=== PATIENT | female | born 1975 | race Caucasian/White ===

== ENCOUNTER 2024-03-17 17:44 | Emergency (ER) | payer BC ==
[~2024-03-17] VITALS: Ht 162.6 cm; Wt 113.4 kg
[~2024-03-17 17:44] MED LIST: LANS30CA53; URSO300C24
[2024-03-17 17:54] VITALS: BP_SYST 149; PULSE 81; RESP 18; TEMP 98.1; O2SAT 99
[2024-03-17] MEDS ORDERED: IBUP-1969 PO (18:54)
[2024-03-17] MEDS ORDERED: DICL20GE TP (18:54)
[2024-03-17 19:22] VITALS: BP_SYST 149; PULSE 81; RESP 18; TEMP 98.1; O2SAT 99
[2024-03-17] MEDS: KETOROLAC TROMETHAMINE 60 MG/2 ML VIAL IM ONE (19:22)
== END 2024-03-17 19:23 | disposition home or self-care (01) ==
LOC: SED 17:44
DX: S80.02XA Contusion of left knee, initial encounter (principal); Z88.6 Allergy status to analgesic agent; W18.39XA Other fall on same level, initial encounter; Y93.89 Activity, other specified; Y92.89 Other specified places as the place of occurrence of the external cause; Y99.8 Other external cause status
CPT/HCPCS: 99284; 73564; 73590; 96372; J1885